=== PATIENT | female | born 1935 | race Caucasian/White ===

== ENCOUNTER 2016-02-17 09:55 | Emergency (ER) | payer MEDICARE, OTHER ==
[~2016-02-17] VITALS: Ht 157.4 cm; Wt 81.6 kg
[2016-02-17] MEDS ORDERED: DIAZEPAM5 MG PO (10:14)
[2016-02-17] MEDS ORDERED: LEVOTHYROXINE0.05 M1 PO (10:14)
[2016-02-17] MEDS ORDERED: GOOD NEIGHBOR150 MG PO (10:15)
[2016-02-17] MEDS ORDERED: BUPROPION75 MG PO (10:15)
[2016-02-17] MEDS ORDERED: LOSARTAN POTASS1 TA5 PO (10:15)
[2016-02-17] MEDS ORDERED: LANTUS SOLOS100 U/M1 SC (10:16)
== END 2016-02-17 13:17 | disposition home or self-care (01) ==
LOC: ED 09:55
DX: M25.561 Pain in right knee (principal); M25.562 Pain in left knee; Z79.4 Long term (current) use of insulin; Z90.49 Acquired absence of other specified parts of digestive tract; Z90.710 Acquired absence of both cervix and uterus; Z88.6 Allergy status to analgesic agent

== ENCOUNTER 2016-06-08 15:23 | Emergency (ER) | payer MEDICARE, OTHER ==
[~2016-06-08] VITALS: Wt 86.2 kg
[~2016-06-08 15:23] MED LIST: BUPROPION75 MG PO; DIAZEPAM5 MG PO; GOOD NEIGHBOR150 MG PO; LANTUS SOLOS100 U/M1 SC; LEVOTHYROXINE0.05 M1 PO; LOSARTAN POTASS1 TA5 PO
[2016-06-08 16:08] LABS: BASO % 0.5 % (0.0-1.0); EOS # 0.3 10*3/uL (0.0-0.4); EOS % 3.9 % (1.0-4.0); HEMATOCRIT 37.4 % (37.0-47.0); HEMOGLOBIN 11.6 g/dl (12.0-16.0); LYMPH # 2.1 10*3/uL (1.3-4.4); LYMPH % 26.4 % (27.0-41.0); MEAN CELL VOLUME 89.7 fl (81.0-99.0); MEAN CORPUSCULAR HGB 27.8 pg (27.0-31.0); MEAN PLATELET VOLUME 9.3 fl (9.6-12.3); MONO # 0.7 10*3/uL (0.1-1.0); MONO % 8.5 % (3.0-9.0); NEUT # 4.8 10*3/uL (2.3-7.9); NEUT % 60.2 % (47.0-73.0); PLATELET COUNT AUTOMATED 279 10*3/uL (130-400); RED BLOOD COUNT 4.17 10*6/uL (4.10-5.10); RED CELL DISTRI WIDTH 14.6 % (0-14.5)
[2016-06-08 16:17] LABS: PROTHROMBIN TIME 10.8 SECONDS (9.0-12.4)
[2016-06-08 16:26] LABS: ALBUMIN 2.7 gm/dl (3.1-4.5); ALKALINE PHOSPHATASE 92 U/L (45-117); BILIRUBIN, TOTAL 0.2 mg/dl (0.2-1.0); BUN 17 mg/dl (7-24); C-REACTIVE PROTEIN 0.99 MG/DL (0-0.3); CARBON DIOXIDE 31 mmol/L (21-32); CHLORIDE 107 mmol/L (98-107); EST GLOM FILT AFRICAN AMERICAN > 60 ml/min; GLUCOSE 214 mg/dL (65-99); POTASSIUM 4.7 mmol/L (3.5-5.1); SGOT/AST 17 IU/L (3-35); SGPT/ALT 22 U/L (12-78); SODIUM 140 mmol/L (136-145); TOTAL PROTEIN 7.2 gm/dL (6.4-8.2)
[2016-06-08 16:29] LABS: TROPONIN I < 0.015 ng/ml (<0.045)
== END 2016-06-08 18:42 | disposition short-term general hospital (02) ==
LOC: ED 15:23
PROVIDERS: Student in an Organized Health Care Education/Training Program
DX: H02.402 Unspecified ptosis of left eyelid (principal); R27.0 Ataxia, unspecified; Z96.652 Presence of left artificial knee joint; Z90.49 Acquired absence of other specified parts of digestive tract; Z90.710 Acquired absence of both cervix and uterus; Z88.6 Allergy status to analgesic agent; Z79.899 Other long term (current) drug therapy; Z79.4 Long term (current) use of insulin

== ENCOUNTER 2016-07-07 16:25 | Emergency (ER) | payer MEDICARE, OTHER ==
[~2016-07-07] VITALS: Wt 81.6 kg
[2016-07-07 17:16] LABS: BASO % 0.4 % (0.0-1.0); EOS # 0.5 10*3/uL (0.0-0.4); EOS % 4.9 % (1.0-4.0); HEMOGLOBIN 11.7 g/dl (12.0-16.0); IG # 0.1 10*3/uL (0.0-0.1); LYMPH # 2.2 10*3/uL (1.3-4.4); LYMPH % 21.3 % (27.0-41.0); MEAN CELL VOLUME 88.4 fl (81.0-99.0); MEAN CORPUSCULAR HGB 27.2 pg (27.0-31.0); MEAN CORPUSCULAR HGB CONC 30.8 g/dl (33.0-37.0); MEAN PLATELET VOLUME 9.3 fl (9.6-12.3); MONO # 1.1 10*3/uL (0.1-1.0); MONO % 10.6 % (3.0-9.0); NEUT # 6.5 10*3/uL (2.3-7.9); PLATELET COUNT AUTOMATED 313 10*3/uL (130-400); RED CELL DISTRI WIDTH 14.1 % (0-14.5); WHITE BLOOD COUNT 10.4 10*3/uL (4.8-10.8)
[2016-07-07 17:25] LABS: INTERNATIONAL NORM RATIO 1.1 (2.0-3.5); PROTHROMBIN TIME 11.9 SECONDS (9.0-12.4)
[2016-07-07 17:28] LABS: BILIRUBIN NEGATIVE (NEGATIVE); BLOOD NEGATIVE (NEGATIVE); CLARITY CLEAR (CLEAR); COLOR YELLOW (YELLOW); GLUCOSE NEGATIVE (NEGATIVE); KETONE NEGATIVE (NEGATIVE); LEUKO ESTERASE NEGATIVE (NEGATIVE); NITRITE NEGATIVE (NEGATIVE); PH 5.5 (5.0-9.0); PROTEIN NEGATIVE (NEGATIVE); SPECIFIC GRAVITY 1.025 (1.005-1.030); UROBILINOGEN 0.2 E.U./dl (0.2-1.0)
[2016-07-07 17:32] LABS: ALBUMIN 2.7 gm/dl (3.1-4.5); ALKALINE PHOSPHATASE 106 U/L (45-117); BILIRUBIN, TOTAL 0.3 mg/dl (0.2-1.0); BUN 14 mg/dl (7-24); C-REACTIVE PROTEIN 4.63 MG/DL (0-0.3); CARBON DIOXIDE 28 mmol/L (21-32); CHLORIDE 108 mmol/L (98-107); CPK 85 U/L (26-192); EST GLOM FILT AFRICAN AMERICAN > 60 ml/min; GLUCOSE 169 mg/dL (65-99); MAGNESIUM 1.9 mg/dL (1.5-2.1); SGOT/AST 16 IU/L (3-35); SGPT/ALT 20 U/L (12-78); SODIUM 141 mmol/L (136-145); TOTAL PROTEIN 7.7 gm/dL (6.4-8.2)
[2016-07-07 17:34] LABS: CKMB 0.6 ng/ml (0.5-3.6)
[2016-07-07 17:34] LABS: BACTERIA TRACE; URINE REFLEX COMMENT YES (NO)
[2016-07-07 17:35] LABS: TROPONIN I < 0.015 ng/ml (<0.045)
== END 2016-07-07 18:42 | disposition home or self-care (01) ==
LOC: ED 16:25
PROVIDERS: Emergency Medicine
DX: R30.0 Dysuria (principal); R53.1 Weakness; R42 Dizziness and giddiness; R31.9 Hematuria, unspecified; Z88.6 Allergy status to analgesic agent

== ENCOUNTER 2016-07-28 16:17 | Inpatient (IN) | payer MEDICARE, OTHER ==
[~2016-07-28] VITALS: Ht 157.4 cm; Wt 84.8 kg
--- NOTE | ~2016-07-28 | CON ---
[place], [place] REPORT OF CONSULTATION [id number] UN[facility] #: [id number] ROOM: 411 DOCTOR: RAYMUNDO CEE ED.D (STEPHEN) BIRTHDATE: [birth year] DOS: 07/30/2016 HISTORY OF PRESENT ILLNESS: The patient is an 81-year-old female referred by for competency evaluation. At the present time, this patient is on the 4th floor at [facility]. This patient states that she is and has 3 children; however 1 is . 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 She does follow with Kathie Mcdaniel, local nurse practitioner for her medical care coverage. Her medications include bupropion, vitamin D, Valium at bedtime, Neurontin, insulin, losartan, Mobic, Pravachol, Zantac and Synthroid. Her medical history is pertinent for diabetes mellitus type 2, diverticulosis, chronic depression, hypertension, and chronic anxiety. This patient denies any substance abuse issues of any significance. The patient was awake, alert and oriented in all three spheres. She denies any auditory or visual hallucinations or delusional thoughts. She does believe that her is possibly having an affair with a woman who is living with the patient and her . It is difficult to determine whether or not this is accurate or not, but she has a long history of thoughts that her has been cheating on her. This patient denies any suicidal ideation or plan. She did follow in my office many years ago and her other complaints were quite similar at that time. In my opinion, this patient is clearly competent to make informed healthcare decisions. There had been some discussion about this patient going to the [facility]; however, the patient states she wants to go home when she is discharged from the hospital. DIAGNOSIS: Generalized anxiety disorder. RECOMMENDATIONS: The patient should follow up for anxiety through nurse Darin practitioner, per the patient's choice. Thank you very much for this consult. RAYMUNDO CEE ED.D CM:CONSTR:REPORT OF CONSULTATION 1442 07/31/16 0008 interface
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
[2016-07-28 16:50] VITALS: BP 135/51
[2016-07-28 17:56] LABS: BASO # 0.1 10*3/uL (0.0-0.1); BASO % 0.5 % (0.0-1.0); EOS # 0.4 10*3/uL (0.0-0.4); EOS % 3.6 % (1.0-4.0); HEMATOCRIT 34.6 % (37.0-47.0); HEMOGLOBIN 10.9 g/dl (12.0-16.0); IG # 0.1 10*3/uL (0.0-0.1); MEAN CELL VOLUME 88.3 fl (81.0-99.0); MEAN CORPUSCULAR HGB 27.8 pg (27.0-31.0); MEAN CORPUSCULAR HGB CONC 31.5 g/dl (33.0-37.0); MEAN PLATELET VOLUME 9.1 fl (9.6-12.3); MONO # 0.8 10*3/uL (0.1-1.0); MONO % 8.1 % (3.0-9.0); NEUT # 6.8 10*3/uL (2.3-7.9); NEUT % 67.2 % (47.0-73.0); PLATELET COUNT AUTOMATED 302 10*3/uL (130-400); RED BLOOD COUNT 3.92 10*6/uL (4.10-5.10); RED CELL DISTRI WIDTH 14.8 % (0-14.5); WHITE BLOOD COUNT 10.1 10*3/uL (4.8-10.8)
[2016-07-28 18:13] LABS: ALBUMIN 2.5 gm/dl (3.1-4.5); ALKALINE PHOSPHATASE 79 U/L (45-117); BILIRUBIN, TOTAL 0.2 mg/dl (0.2-1.0); BUN 19 mg/dl (7-24); C-REACTIVE PROTEIN 0.76 MG/DL (0-0.3); CARBON DIOXIDE 28 mmol/L (21-32); CHLORIDE 105 mmol/L (98-107); EST GLOM FILT AFRICAN AMERICAN > 60 ml/min; GLUCOSE 279 mg/dL (65-99); MAGNESIUM 2.3 mg/dL (1.5-2.1); POTASSIUM 4.4 mmol/L (3.5-5.1); SGOT/AST 25 IU/L (3-35); SGPT/ALT 37 U/L (12-78); SODIUM 141 mmol/L (136-145); TOTAL PROTEIN 6.8 gm/dL (6.4-8.2)
[2016-07-28 19:50] VITALS: BP 115/58
[2016-07-28 22:19] VITALS: BP 143/73
[2016-07-29 01:45] LABS: CKMB 0.6 ng/ml (0.5-3.6)
[2016-07-29 06:53] LABS: BASO # 0.1 10*3/uL (0.0-0.1); BASO % 0.5 % (0.0-1.0); EOS # 0.5 10*3/uL (0.0-0.4); EOS % 5.5 % (1.0-4.0); HEMATOCRIT 34.5 % (37.0-47.0); HEMOGLOBIN 10.6 g/dl (12.0-16.0); IG # 0.1 10*3/uL (0.0-0.1); LYMPH # 3.3 10*3/uL (1.3-4.4); LYMPH % 33.3 % (27.0-41.0); MEAN CELL VOLUME 87.6 fl (81.0-99.0); MEAN CORPUSCULAR HGB 26.9 pg (27.0-31.0); MEAN CORPUSCULAR HGB CONC 30.7 g/dl (33.0-37.0); MEAN PLATELET VOLUME 9.3 fl (9.6-12.3); MONO % 10.5 % (3.0-9.0); NEUT # 4.9 10*3/uL (2.3-7.9); NEUT % 49.7 % (47.0-73.0); PLATELET COUNT AUTOMATED 311 10*3/uL (130-400); RED BLOOD COUNT 3.94 10*6/uL (4.10-5.10); RED CELL DISTRI WIDTH 14.7 % (0-14.5); WHITE BLOOD COUNT 9.9 10*3/uL (4.8-10.8)
[2016-07-29 06:58] LABS: CKMB 0.7 ng/ml (0.5-3.6)
[2016-07-29 07:01] LABS: BILIRUBIN NEGATIVE (NEGATIVE); BLOOD NEGATIVE (NEGATIVE); CLARITY SL CLOUDY (CLEAR); COLOR YELLOW (YELLOW); GLUCOSE 1+ (NEGATIVE); KETONE NEGATIVE (NEGATIVE); LEUKO ESTERASE 2+ (NEGATIVE); NITRITE NEGATIVE (NEGATIVE); PROTEIN NEGATIVE (NEGATIVE); SPECIFIC GRAVITY 1.025 (1.005-1.030); UROBILINOGEN 0.2 E.U./dl (0.2-1.0)
[2016-07-29 07:02] LABS: HEMOGLOBIN A1c 8.5 % (4.8-5.6)
[2016-07-29 07:08] LABS: BACTERIA TRACE; EPITHELIAL CELLS 0-2; URINE REFLEX COMMENT YES (NO)
[2016-07-29 07:16] LABS: BUN 15 mg/dl (7-24); CARBON DIOXIDE 27 mmol/L (21-32); CHLORIDE 108 mmol/L (98-107); CHOLESTEROL 190 mg/dL (<200); EST GLOM FILT AFRICAN AMERICAN > 60 ml/min; FREE T4 0.96 ng/dl (0.76-1.46); GLUCOSE 125 mg/dL (65-99); HDL CHOLESTEROL 50 mg/dl (40-60); LDL CHOLESTEROL 92 mg/dL (9-159); MAGNESIUM 2.3 mg/dL (1.5-2.1); PHOSPHOROUS 3.7 mg/dL (2.5-4.9); POTASSIUM 3.9 mmol/L (3.5-5.1); SODIUM 145 mmol/L (136-145); TRIGLYCERIDES 241 mg/dl (<150); VLDL CHOLESTEROL 48 mg/dL (6-40)
[2016-07-29 07:25] LABS: VITAMIN D, 25-HYDROXY 27.5 ng/mL (30-100)
[2016-07-29 07:26] LABS: FOLIC ACID > 24.00 ng/mL (>5.38)
[2016-07-29 08:00] VITALS: BP 153/51
[2016-07-29] MEDS ORDERED: LANTUS SOLOS100 U/M1 SC (09:50)
[2016-07-29] MEDS ORDERED: VALIUM5 MG PO (09:51)
[2016-07-29] MEDS ORDERED: MOBIC15 MG PO (09:51)
[2016-07-29] MEDS ORDERED: LEVOTHYROXINE0.05 MG PO (09:52)
[2016-07-29] MEDS ORDERED: LOSARTAN POTASS1 TA5 PO (09:52)
[2016-07-29] MEDS ORDERED: NEURONTIN100 MG PO (09:53)
[2016-07-29] MEDS ORDERED: PRAVACHOL20 MG PO (09:53)
[2016-07-29] MEDS ORDERED: OMEPRAZOLE10 MG PO (09:54)
[2016-07-29] MEDS ORDERED: ZANTAC 150150 MG PO (09:56)
[2016-07-29] MEDS ORDERED: BUPROPION75 MG PO (09:56)
[2016-07-29] MEDS ORDERED: B COMPLEX1 EACH PO (09:57)
[2016-07-29] MEDS ORDERED: VITAMIN D1000 IU PO (09:58)
[2016-07-29] MEDS ORDERED: MULTI-VITAMIN1 EACH PO (09:58)
[2016-07-29 12:00] VITALS: BP 124/48
[2016-07-29 12:20] LABS: CKMB 0.5 ng/ml (0.5-3.6)
[2016-07-29 16:00] VITALS: BP 143/51
[2016-07-30] VITALS: BP 150/55
[2016-07-30 07:20] LABS: BASO # 0.1 10*3/uL (0.0-0.1); BASO % 0.6 % (0.0-1.0); EOS # 0.5 10*3/uL (0.0-0.4); EOS % 6.2 % (1.0-4.0); HEMATOCRIT 35.2 % (37.0-47.0); HEMOGLOBIN 10.8 g/dl (12.0-16.0); LYMPH # 2.9 10*3/uL (1.3-4.4); LYMPH % 34.8 % (27.0-41.0); MEAN CELL VOLUME 87.8 fl (81.0-99.0); MEAN CORPUSCULAR HGB 26.9 pg (27.0-31.0); MEAN CORPUSCULAR HGB CONC 30.7 g/dl (33.0-37.0); MEAN PLATELET VOLUME 9.3 fl (9.6-12.3); MONO % 12.1 % (3.0-9.0); NEUT # 3.8 10*3/uL (2.3-7.9); NEUT % 45.8 % (47.0-73.0); PLATELET COUNT AUTOMATED 308 10*3/uL (130-400); RED BLOOD COUNT 4.01 10*6/uL (4.10-5.10); RED CELL DISTRI WIDTH 14.6 % (0-14.5); WHITE BLOOD COUNT 8.4 10*3/uL (4.8-10.8)
[2016-07-30 07:38] LABS: BUN 10 mg/dl (7-24); CARBON DIOXIDE 27 mmol/L (21-32); CHLORIDE 110 mmol/L (98-107); EST GLOM FILT AFRICAN AMERICAN > 60 ml/min; GLUCOSE 85 mg/dL (65-99); POTASSIUM 3.9 mmol/L (3.5-5.1); SODIUM 147 mmol/L (136-145)
[2016-07-30 08:00] VITALS: BP 148/63
[2016-07-30] MEDS ORDERED: LOSARTAN POTASS50 M1 PO (15:08)
[2016-07-30] MEDS ORDERED: HUMALOG100 U/ML SC (15:08)
[2016-07-30] MEDS ORDERED: RISPERIDONE0.5 MG PO (15:08)
[2016-07-30 16:00] VITALS: BP 156/55
[2016-07-30] MEDS ORDERED: HYDR12.5C PO (19:45)
[2016-07-30] MEDS ORDERED: VALIUM5 MG PO (19:46)
[2016-07-30] MEDS ORDERED: PEPCID20 MG PO (19:51)
[2016-07-30] MEDS ORDERED: Lovenox40 MG/0.4 SC (19:53)
[2016-07-30] MEDS ORDERED: RESTORIL15 MG PO (19:54)
== END 2016-07-30 19:05 | disposition home health service (06) | DRG 391 ==
LOC: ED 16:17 → 4E 17:25 → EDHOLD 17:25 → 4E 18:08
PROVIDERS: Emergency Medicine; Internal Medicine; Student in an Organized Health Care Education/Training Program
DX: K57.90 Diverticulosis of intestine, part unspecified, without perforation or abscess without bleeding (principal); G93.41 Metabolic encephalopathy; E43 Unspecified severe protein-calorie malnutrition; F33.3 Major depressive disorder, recurrent, severe with psychotic symptoms; E11.65 Type 2 diabetes mellitus with hyperglycemia; D64.9 Anemia, unspecified; E83.41 Hypermagnesemia; E78.5 Hyperlipidemia, unspecified; I10 Essential (primary) hypertension; Z96.652 Presence of left artificial knee joint; K21.9 Gastro-esophageal reflux disease without esophagitis; E66.9 Obesity, unspecified; F41.1 Generalized anxiety disorder; F60.0 Paranoid personality disorder; Z90.49 Acquired absence of other specified parts of digestive tract; Z90.710 Acquired absence of both cervix and uterus; Z82.49 Family history of ischemic heart disease and other diseases of the circulatory system; Z80.41 Family history of malignant neoplasm of ovary; Z88.6 Allergy status to analgesic agent; Z79.4 Long term (current) use of insulin; Z79.1 Long term (current) use of non-steroidal anti-inflammatories (NSAID); Z79.899 Other long term (current) drug therapy; Z68.34 Body mass index [BMI] 34.0-34.9, adult

== ENCOUNTER 2016-07-30 16:26 | Inpatient (IN) | payer MEDICARE, OTHER ==
[~2016-07-30] VITALS: Ht 157.4 cm; Wt 84.4 kg
--- NOTE | ~2016-07-30 | PR ---
[place], [place] PROGRESS NOTE NAME[id number] UNIT #: [id number] ROOM: 309 DOCTOR: SHELLIE MORA BIRTHDATE: [birth year] DOS: 08/01/2016 CHIEF COMPLAINT: "I do not want any breakfast." SUMMARY OF THE VISIT: She is resting in bed. She is sleeping. She says that she has not slept for a few days and she feels like she needs to catch up now. She awakens easily, oriented to herself, questionable to place and time at this time. She did say ask me where her breakfast was so I did tell her that we can get that for her later if she needs it. She was evaluated yesterday by Dr. Wade for competency he did find her to be competent, he will reevaluate her next week, just to make sure that this delirium that she was originally admitted to the medical floor has passed. PLAN: Increase her Exelon patch and her Namenda today to maximize both of those therapies. We will continue to try to engage her in individual and delaney milieu and discharge her to the least restrictive environment when she is psychiatrically stable. Shellie Mora NP CM:NAZARIO [phone] SHELLIE MORA 08/01/16 1209 interface
--- NOTE | ~2016-07-30 | PR ---
[place], [place] PROGRESS NOTE NAME: KAILEY BERNARDO UNIT #: [id number] ROOM: 309 DOCTOR: WILMA TAYLOR MD BIRTHDATE: [birth year] DOS: 08/03/2016 CHIEF COMPLAINT: "My was supposed to pick me up today; I am surprised he is not here." SUMMARY OF THE VISIT: The patient was interviewed as she sat in the dining area, eating her breakfast. She was convinced that her was supposed to be here early this morning to pick her up and was quite frustrated that he was not. She seemed rather confused and disjointed in her thinking, talking about her little dog coming to visit her and seeing people in the hallway that were not there. She continues to be confused as well as somewhat psychotic in her thinking. She is tolerating her current medication regimen well. MENTAL STATUS: She is alert and oriented to self, place, but not time. Mood still seems to be somewhat labile and she does seem to be experiencing ongoing delusions and psychotic symptoms. She processes conversation slowly and tends to be repetitive and perseverative in her thinking. Short term memory is exceedingly poor. PLAN: I will go ahead and maximize out her Exelon patch from 9.5 to 13.3 mg daily and plan to do similar maximization with her Namenda at a later time. I will increase her Risperdal from 0.5 mg twice daily to 0.5 mg in the morning and 1 mg at bedtime to decrease her psychotic thought process, continue to engage her in individual and delaney milieu activity. I am awaiting a consult from Dr. Jameson Wade, psychologist regarding competency to determine then the appropriate placement for the patient. We will discharge then when psychiatrically stable. WILMA TAYLOR MD CM:PNTRANS [phone] WILMA TAYLOR MD 08/03/16 1717 interface
--- NOTE | ~2016-07-30 | CON ---
[place], [place] REPORT OF CONSULTATION NAME: KAILEY BERNARDO UNIT #: [id number] ROOM: 309 DOCTOR: RAYMUNDO CEE ED.D (STEHPEN) BIRTHDATE: [birth year] DOS: 08/03/2016 HISTORY OF PRESENT ILLNESS: At the present time, this patient appears to be competent to make informed healthcare decisions. I talked to her daughter in [place] yesterday and the daughter is coming up to help the patient and her move to [place] in the immediate future. The daughter will have the paperwork completed for durable power of environmental attorney for healthcare for this patient once she arrives in [place]. At the present time, in my opinion, this patient does have some delusional thought, but overall does understand the risks and benefits of treatment. She has a long history of destroying the thoughts and look at times which causes a great deal of confusion amongst anyone who does interview this patient. I have known this patient for over 20 years and she has not changed dramatically over the past 20 years. I met with her daughter, Karen, and the patient's here in the hospital after speaking with him on the phone and they were comfortable with her returning home then getting a power of environmental attorney for healthcare. According to the daughter in [place], the patient is a hoarder and has a tendency to excessively spend money. I think that she would do best if she does move in with her daughter, as is the choice of the daughter and the patient's . DIAGNOSES: Major depressive disorder with psychotic features. RECOMMENDATIONS: In my opinion, this patient is competent and her daughter will be arriving in [place] to have her complete healthcare power of environmental attorney form in the immediate future. In the meantime, this patient should go to rehabilitation care to increase her mobility and physical stability for independent living or living with her daughter. Thank you very much for this consult. RAYMUNDO CEE ED.D CM:CONSTR:REPORT OF CONSULTATION 0813 08/04/16 1003 interface WILMA TAYLOR MD
--- NOTE | ~2016-07-30 | DS ---
[place], [place] DISCHARGE SUMMARY [id number] UNIT #: [id number] ROOM: 317 DOCTOR: SHELLIE MORA BIRTHDATE: [birth year] DOS: 08/04/2016 CHIEF COMPLAINT: "I had a fantastic night." HISTORY OF PRESENT ILLNESS: She is an 81-year-old white female who was admitted to the hospital medically with diarrhea and some other medical problems. She was found to be grossly confused and delusional while she was on the unit. She was paranoid, believed that a friend that she had made on Facebook moved in with her in December and that this friend was having an intimate relationship with her . She was found to have worsening symptoms in the evening and that the confusion progressively got worse throughout the day. She was then transferred to the Behavioral Health Unit for medication stabilization and treatment. PAST MEDICAL HISTORY: Diabetes, diverticulosis, GERD, hyperlipidemia, hypertension, anemia and protein-calorie malnutrition. ALLERGIES: She is allergic to caffeine and aspirin. SUMMARY OF HOSPITAL COURSE: While the patient has been here on the Behavioral Health Unit, we have adjusted her dementia medications to maximize that. We will continue to monitor that medication at this facility when she returns. MENTAL STATUS AT DISCHARGE: She is alert, pleasant, still a little confused, especially to time, but states that she is really ready to go home. Referrals have been made to [facility] where she will go now for long-term care. Her prescriptions will be sent with her to [facility] and she is discharged in mentally stable condition. Shellie Mora NP CM:DISCHARG [phone] SHELLIE MORA 08/20/16 1408 KADI MENA MIS.LLR
--- NOTE | ~2016-07-30 | WRIGHTHP ---
[place], [place] PATIENT HISTORY AND PHYSICAL EXAM NAME: KAILEY BERNARDO [facility] #: [id number] UNIT #: [id number] ROOM: 309 DOCTOR: WILMA TAYLOR MD BIRTHDATE: [birth year] DOS: 07/31/2016 CHIEF COMPLAINT: "I need to go home. I have not seen my in over a month." HISTORY OF PRESENT ILLNESS: This is an 81-year-old white female who was initially admitted to the medical unit due to significant diarrhea and other underlying medical problems. While on the medical unit, the patient was found to be grossly confused as well as delusional. The patient is very paranoid and believes that she had a friend, who was a Facebook friend for 15 years, moved in with her in December and since that time this friend has had an ongoing sexual relationship with her . She fears that her is going to leave her for the friend and is increasingly paranoid and making threats to him and others. The patient additionally is found to sundown significantly and her level of confusion worsens as the day progresses to the point where she is oriented to self only. Because of the significant mental status changes, it was felt that an inpatient evaluation and treatment was warranted as well as possible emergency guardianship and determine if placement is the best option for her. PAST MEDICAL HISTORY: Remarkable for diabetes, diverticulosis, GERD, hyperlipidemia, hypertension, anemia, and protein-calorie malnutrition. MENTAL STATUS: The patient this morning is alert and oriented to person, place, but not time. The patient reports that she has been in the hospital for at least a month. The patient could not tell me why exactly she is here and was rather guarded and suspicious of my questioning of her. She denied hearing voices or seeing things, but does seem to be actively delusional. There is no hypomania or tom. She does process information slowly and she exhibits poor short-term memory. 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 PLAN: The patient has already been started on Remeron 15 mg at bedtime as well as Risperdal 0.5 twice daily; however, she has been noncompliant with these medications. Given the cognitive decline that she is experiencing, I will go ahead and start Exelon patch 4.6 mg daily along with Namenda 5 mg a day and plan to titrate both of these medications upward to achieve maximum benefit. We will have her engage in individual and delaney milieu activities with the ultimate plan to return to the least restrictive environment when psychiatrically stable. [place], [place] PATIENT HISTORY AND PHYSICAL EXAM NAME: KAILEY BERNARDO UNIT #: [id number] ROOM: [facility] DOCTOR: WILMA TAYLOR MD BIRTHDATE: [birth year] WILMA TAYLOR MD CM:HISPHYS:PATIENT HISTORY AND PHYSICAL EXAMINATION [id number] WILMA TAYLOR MD 07/31/16 1025 interface
--- NOTE | ~2016-07-30 | CON ---
[place], [place] REPORT OF CONSULTATION [id number] UNIT #: [id number] ROOM: 309 DOCTOR: RAYMUNDO CEE ED.D) BIRTHDATE: [birth year] DOS: 07/31/2016 HISTORY OF PRESENT ILLNESS: The patient is an 81-year-old female referred by Dr. Guadalupe for competency evaluation. At the present time, this patient is on the [facility] Unit here at [facility]. I did evaluate this patient yesterday on medical floor and she was competent at that time. She is with 3 children, 1 . 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 She does follow with Kathie Mcdaniel, nurse practitioner. HOME MEDICATIONS: Include bupropion, vitamin D, Valium, Neurontin, insulin, losartan, Mobic, Pravachol, Zantac and Synthroid. Dr. Guadalupe has also started Namenda and Exelon along with Remeron and Risperdal. PAST MEDICAL HISTORY: This patient's medical history is pertinent for diabetes mellitus type 2, diverticulosis, chronic depression, hypertension, and chronic anxiety. She denies any substance abuse issues. The patient remains awake, alert and oriented in all three spheres. She does not have any auditory or visual hallucinations but does have some delusional thoughts about her . I am uncertain whether or not these thoughts are true or not because she stated that her was having an affair with a woman who is living in their home that the patient met through Face book. Apparently, there were some accuracy to this; however, I am not certain. When I evaluated this patient yesterday, she was clearly competent and at the present time, in my opinion, she remains competent, although she does have some delusional thoughts. She is pink slipped to the unit and therefore I will wait until next week to reevaluate her to determine whether or not anything further should be done regarding competency to the court. At this time, I do not see the need to file competency papers on this patient and hopefully, her condition will improve somewhat to the weekend. I have known this patient for many years and her behavior is not really significantly different from what it was for the many years I have known her. She has always had some paranoid thoughts about her and having relationships and she and her always had a very difficult relationship. DIAGNOSIS: Major depressive disorder with psychotic features. RECOMMENDATIONS: I will reevaluate this patient next week to further determine whether or not competency paper should be filed. Thank you very much for this consult. [place], [place] REPORT OF CONSULTATION NAME: KAILEY BERNARDO UNIT #: [id number] ROOM: 309 DOCTOR: RAYMUNDO CEE ED.D) BIRTHDATE: [birth year] RAYMUNDO CEE ED.D CM:CONSTR:REPORT OF CONSULTATION 1356 08/01/16 0058 interface
--- NOTE | ~2016-07-30 | PR ---
[place], [place] PROGRESS NOTE NAME: KAILEY BERNARDO UNIT #: [id number] ROOM: 309 DOCTOR: SHELLIE MORA BIRTHDATE: [birth year] DOS: 08/02/2016 CHIEF COMPLAINT: "I am going shopping today at 10:00." SUMMARY OF THE VISIT: She was seated in the dining room where she had just finished her breakfast. Reports from staff there was a family meeting yesterday where patient was very paranoid, yelling, accusing her daughter of various different things, saying that we were poisoning her here. She continues this morning to be confused about as far as place and time, what is going to happen today, she seems to believe that she is going to be leaving today. She was redirected fairly easily, but only for short periods. Her mood and affect are appropriate. PLAN: We will increase her Namenda to 5 mg b.i.d. to help to combat her dementia and to supplement her Exelon. We will continue to try to engage her in individual and delaney milieu and we will discharge her to the least restrictive environment when she is psychiatrically stable. Shellie Mora NP CM:NAZARIO [phone] SHELLIE MORA 08/02/16 1133 interface
[~2016-07-30 16:26] MED LIST changes: +B COMPLEX1 EACH PO; +HUMALOG100 U/ML SC; +LEVOTHYROXINE0.05 MG PO; +LOSARTAN POTASS50 M1 PO; +MOBIC15 MG PO; +MULTI-VITAMIN1 EACH PO; +NEURONTIN100 MG PO; +OMEPRAZOLE10 MG PO; +PRAVACHOL20 MG PO; +RISPERIDONE0.5 MG PO; +VALIUM5 MG PO; +VITAMIN D1000 IU PO; +ZANTAC 150150 MG PO
[2016-07-30] MEDS ORDERED: HYDR12.5C PO (19:45)
[2016-07-30] MEDS ORDERED: VALIUM5 MG PO (19:46)
[2016-07-30] MEDS ORDERED: PEPCID20 MG PO (19:51)
[2016-07-30] MEDS ORDERED: Lovenox40 MG/0.4 SC (19:53)
[2016-07-30] MEDS ORDERED: RESTORIL15 MG PO (19:54)
[2016-07-30 20:10] VITALS: BP 170/110; BP 170/88
[2016-07-30 23:25] VITALS: BP 170/88
[2016-07-31 07:58] VITALS: BP 132/92
[2016-07-31 19:58] VITALS: BP 149/59
[2016-08-01 08:00] VITALS: BP 118/66
[2016-08-01 20:00] VITALS: BP 147/57
[2016-08-01 20:26] VITALS: BP 147/57
[2016-08-02 07:54] VITALS: BP 123/57
[2016-08-02 20:00] VITALS: BP 138/90
[2016-08-03 08:47] VITALS: BP 141/58
[2016-08-03 21:18] VITALS: BP 139/68
[2016-08-04 08:00] VITALS: BP 139/67
[2016-08-04] MEDS ORDERED: MIRTAZAPINE15 M2 PO (08:58)
[2016-08-04] MEDS ORDERED: RISPERIDONE1 MG PO (08:58)
[2016-08-04] MEDS ORDERED: NAMENDA-5 PO (08:58)
[2016-08-04] MEDS ORDERED: EXELON13.3 MG/21 T (08:58)
[2016-08-04] MEDS ORDERED: D-1000 185 MG-11 TAB PO (08:58)
[2016-08-04] MEDS ORDERED: RISPERIDONE0.5 MG PO (08:58)
== END 2016-08-04 19:00 | disposition other institution (70) | DRG 56 ==
LOC: 3N 16:26
PROVIDERS: Psychiatry & Neurology Psychiatry
DX: G30.9 Alzheimer's disease, unspecified (principal); E43 Unspecified severe protein-calorie malnutrition; F02.81 Dementia in other diseases classified elsewhere, unspecified severity, with behavioral disturbance; E11.9 Type 2 diabetes mellitus without complications; F33.3 Major depressive disorder, recurrent, severe with psychotic symptoms; D64.9 Anemia, unspecified; K57.90 Diverticulosis of intestine, part unspecified, without perforation or abscess without bleeding; K21.9 Gastro-esophageal reflux disease without esophagitis; E78.5 Hyperlipidemia, unspecified; I10 Essential (primary) hypertension; Z88.6 Allergy status to analgesic agent; Z91.048 Other nonmedicinal substance allergy status; F41.9 Anxiety disorder, unspecified; Z90.49 Acquired absence of other specified parts of digestive tract; Z90.710 Acquired absence of both cervix and uterus; Z96.652 Presence of left artificial knee joint; Z82.49 Family history of ischemic heart disease and other diseases of the circulatory system; Z80.9 Family history of malignant neoplasm, unspecified; Z79.4 Long term (current) use of insulin

== ENCOUNTER 2016-08-22 14:59 | Emergency (ER) | payer MEDICARE, OTHER ==
[~2016-08-22] VITALS: Ht 157.4 cm; Wt 79.4 kg
[~2016-08-22 14:59] MED LIST changes: +D-1000 185 MG-11 TAB PO; +EXELON13.3 MG/21 T; +HYDR12.5C PO; +Lovenox40 MG/0.4 SC; +MIRTAZAPINE15 M2 PO; +NAMENDA-5 PO; +PEPCID20 MG PO; +RESTORIL15 MG PO; +RISPERIDONE1 MG PO
[2016-08-22 15:41] LABS: BILIRUBIN NEGATIVE (NEGATIVE); BLOOD NEGATIVE (NEGATIVE); CLARITY SL CLOUDY (CLEAR); COLOR YELLOW (YELLOW); GLUCOSE NEGATIVE (NEGATIVE); KETONE NEGATIVE (NEGATIVE); LEUKO ESTERASE 1+ (NEGATIVE); NITRITE NEGATIVE (NEGATIVE); PH 6.5 (5.0-9.0); PROTEIN NEGATIVE (NEGATIVE); UROBILINOGEN 0.2 E.U./dl (0.2-1.0)
[2016-08-22 15:49] LABS: MUCOUS 1+; URINE REFLEX COMMENT YES (NO)
[2016-08-22] MEDS ORDERED: PYRIDIUM200 M1 PO ×2 (15:58→16:22)
[2016-08-22] MEDS ORDERED: MACROBID100 M1 PO ×2 (15:58→16:22)
== END 2016-08-22 16:11 | disposition home or self-care (01) ==
LOC: ED 14:59
PROVIDERS: Nurse Practitioner Family
DX: N39.0 Urinary tract infection, site not specified (principal); Z88.6 Allergy status to analgesic agent; Z88.8 Allergy status to other drugs, medicaments and biological substances; Z79.899 Other long term (current) drug therapy

== ENCOUNTER 2016-09-07 16:59 | Emergency (ER) | payer MEDICARE, OTHER ==
[~2016-09-07] VITALS: Ht 157.4 cm; Wt 77.1 kg
[~2016-09-07 16:59] MED LIST changes: +MACROBID100 M1 PO; +PYRIDIUM200 M1 PO
[2016-09-07 17:40] LABS: BASO # 0.1 10*3/uL (0.0-0.1); BASO % 0.4 % (0.0-1.0); EOS # 0.1 10*3/uL (0.0-0.4); EOS % 1.2 % (1.0-4.0); HEMATOCRIT 36.9 % (37.0-47.0); HEMOGLOBIN 11.2 g/dl (12.0-16.0); IG # 0.1 10*3/uL (0.0-0.1); LYMPH # 1.7 10*3/uL (1.3-4.4); LYMPH % 13.9 % (27.0-41.0); MEAN CELL VOLUME 88.3 fl (81.0-99.0); MEAN CORPUSCULAR HGB 26.8 pg (27.0-31.0); MEAN CORPUSCULAR HGB CONC 30.4 g/dl (33.0-37.0); MEAN PLATELET VOLUME 9.4 fl (9.6-12.3); MONO # 0.8 10*3/uL (0.1-1.0); MONO % 6.5 % (3.0-9.0); NEUT # 9.2 10*3/uL (2.3-7.9); NEUT % 77.5 % (47.0-73.0); PLATELET COUNT AUTOMATED 334 10*3/uL (130-400); RED BLOOD COUNT 4.18 10*6/uL (4.10-5.10); RED CELL DISTRI WIDTH 15.2 % (0-14.5); WHITE BLOOD COUNT 11.8 10*3/uL (4.8-10.8)
[2016-09-07 17:51] LABS: BUN 18 mg/dl (7-24); CARBON DIOXIDE 27 mmol/L (21-32); CHLORIDE 109 mmol/L (98-107); EST GLOM FILT AFRICAN AMERICAN > 60 ml/min; GLUCOSE 144 mg/dL (65-99); POTASSIUM 4.4 mmol/L (3.5-5.1); SODIUM 144 mmol/L (136-145)
[2016-09-07 18:00] LABS: BILIRUBIN NEGATIVE (NEGATIVE); BLOOD NEGATIVE (NEGATIVE); CLARITY SL CLOUDY (CLEAR); COLOR YELLOW (YELLOW); GLUCOSE 1+ (NEGATIVE); KETONE NEGATIVE (NEGATIVE); LEUKO ESTERASE NEGATIVE (NEGATIVE); NITRITE NEGATIVE (NEGATIVE); PH 5.5 (5.0-9.0); PROTEIN NEGATIVE (NEGATIVE); UROBILINOGEN 0.2 E.U./dl (0.2-1.0)
[2016-09-07 18:08] LABS: BACTERIA 1+; MUCOUS TRACE; RBC 0-2 rbc/hpf (0-2); URINE AMPHETAMINES < 1000 (1000ng/ml); URINE BARBITURATES < 200 (200ng/ml); URINE COCAINE < 300 (300ng/ml); URINE REFLEX COMMENT NO (NO)
== END 2016-09-07 20:32 | disposition home health service (06) ==
LOC: ED 16:59
PROVIDERS: Emergency Medicine
DX: F23 Brief psychotic disorder (principal); F41.9 Anxiety disorder, unspecified; I10 Essential (primary) hypertension; E78.5 Hyperlipidemia, unspecified; E11.9 Type 2 diabetes mellitus without complications; K21.9 Gastro-esophageal reflux disease without esophagitis; Z79.4 Long term (current) use of insulin; Z88.6 Allergy status to analgesic agent; Z88.8 Allergy status to other drugs, medicaments and biological substances; Z79.899 Other long term (current) drug therapy

== ENCOUNTER 2016-09-07 20:33 | Inpatient (IN) | payer MEDICARE, OTHER ==
[~2016-09-07] VITALS: Ht 157.4 cm; Wt 83.9 kg
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
[2016-09-07 21:00] VITALS: BP 186/64
[2016-09-08 06:53] LABS: BASO # 0.1 10*3/uL (0.0-0.1); BASO % 0.6 % (0.0-1.0); EOS # 0.4 10*3/uL (0.0-0.4); EOS % 5.1 % (1.0-4.0); HEMATOCRIT 32.1 % (37.0-47.0); HEMOGLOBIN 9.9 g/dl (12.0-16.0); LYMPH # 2.8 10*3/uL (1.3-4.4); LYMPH % 32.8 % (27.0-41.0); MEAN CELL VOLUME 88.9 fl (81.0-99.0); MEAN CORPUSCULAR HGB 27.4 pg (27.0-31.0); MEAN CORPUSCULAR HGB CONC 30.8 g/dl (33.0-37.0); MEAN PLATELET VOLUME 9.4 fl (9.6-12.3); MONO # 0.8 10*3/uL (0.1-1.0); MONO % 8.9 % (3.0-9.0); NEUT # 4.4 10*3/uL (2.3-7.9); NEUT % 52.2 % (47.0-73.0); PLATELET COUNT AUTOMATED 296 10*3/uL (130-400); RED BLOOD COUNT 3.61 10*6/uL (4.10-5.10); RED CELL DISTRI WIDTH 15.1 % (0-14.5); WHITE BLOOD COUNT 8.4 10*3/uL (4.8-10.8)
[2016-09-08 07:15] LABS: ALBUMIN 2.4 gm/dl (3.1-4.5); BILIRUBIN, TOTAL 0.3 mg/dl (0.2-1.0); BUN 15 mg/dl (7-24); CARBON DIOXIDE 29 mmol/L (21-32); CHLORIDE 111 mmol/L (98-107); EST GLOM FILT AFRICAN AMERICAN > 60 ml/min; GLUCOSE 74 mg/dL (65-99); POTASSIUM 3.7 mmol/L (3.5-5.1); SGOT/AST 16 IU/L (3-35); SGPT/ALT 20 U/L (12-78); SODIUM 146 mmol/L (136-145); TOTAL PROTEIN 6.6 gm/dL (6.4-8.2)
[2016-09-08 07:23] LABS: ALKALINE PHOSPHATASE 79 U/L (45-117)
[2016-09-08 08:05] VITALS: BP 155/59
[2016-09-08 09:02] LABS: VITAMIN D, 25-HYDROXY 33.8 ng/mL (30-100)
[2016-09-08 09:18] LABS: FOLIC ACID > 24.00 ng/mL (>5.38)
[2016-09-08 20:17] VITALS: BP 134/52
[2016-09-09 08:00] VITALS: BP 151/68
[2016-09-09 20:17] VITALS: BP 118/68
[2016-09-09] MEDS ORDERED: EXELON4.6 MG/24 TD (21:33)
[2016-09-09] MEDS ORDERED: CYMBALTA30 MG PO (21:34)
[2016-09-09] MEDS ORDERED: INVEGA3 MG PO (21:35)
[2016-09-09] MEDS ORDERED: ATIVAN1 MG PO ×2 (21:37→22:49)
[2016-09-09] MEDS ORDERED: ATIVAN2 MG/ML IM (21:38)
[2016-09-09] MEDS ORDERED: GEODON20 M1 IM (21:39)
== END 2016-09-09 21:00 | disposition short-term general hospital (02) | DRG 885 ==
LOC: 3N 20:33
PROVIDERS: Psychiatry & Neurology Psychiatry
DX: F23 Brief psychotic disorder (principal); E43 Unspecified severe protein-calorie malnutrition; R65.10 Systemic inflammatory response syndrome (SIRS) of non-infectious origin without acute organ dysfunction; D64.9 Anemia, unspecified; E11.65 Type 2 diabetes mellitus with hyperglycemia; E11.40 Type 2 diabetes mellitus with diabetic neuropathy, unspecified; F33.2 Major depressive disorder, recurrent severe without psychotic features; Z68.30 Body mass index [BMI] 30.0-30.9, adult; K57.90 Diverticulosis of intestine, part unspecified, without perforation or abscess without bleeding; E66.9 Obesity, unspecified; I10 Essential (primary) hypertension; F41.1 Generalized anxiety disorder; E78.5 Hyperlipidemia, unspecified; K21.0 Gastro-esophageal reflux disease with esophagitis; Z96.652 Presence of left artificial knee joint; E55.9 Vitamin D deficiency, unspecified; Z91.81 History of falling; Z87.440 Personal history of urinary (tract) infections; Z90.49 Acquired absence of other specified parts of digestive tract; Z90.710 Acquired absence of both cervix and uterus; Z82.49 Family history of ischemic heart disease and other diseases of the circulatory system; Z80.41 Family history of malignant neoplasm of ovary; Z88.6 Allergy status to analgesic agent; Z91.018 Allergy to other foods

== ENCOUNTER 2016-09-09 21:28 | Inpatient (IN) | payer MEDICARE, OTHER ==
[~2016-09-09] VITALS: Ht 162.6 cm; Wt 84.6 kg
[2016-09-09 21:30] VITALS: BP 152/62
[2016-09-09] MEDS ORDERED: EXELON4.6 MG/24 TD (21:33)
[2016-09-09] MEDS ORDERED: CYMBALTA30 MG PO (21:34)
[2016-09-09] MEDS ORDERED: INVEGA3 MG PO (21:35)
[2016-09-09] MEDS ORDERED: ATIVAN1 MG PO ×2 (21:37→22:49)
[2016-09-09] MEDS ORDERED: ATIVAN2 MG/ML IM (21:38)
[2016-09-09] MEDS ORDERED: GEODON20 M1 IM (21:39)
[2016-09-09 22:09] LABS: BASO % 0.4 % (0.0-1.0); EOS # 0.6 10*3/uL (0.0-0.4); EOS % 6.5 % (1.0-4.0); HEMATOCRIT 36.2 % (37.0-47.0); HEMOGLOBIN 10.8 g/dl (12.0-16.0); LYMPH # 2.5 10*3/uL (1.3-4.4); LYMPH % 27.4 % (27.0-41.0); MEAN CORPUSCULAR HGB 26.9 pg (27.0-31.0); MEAN CORPUSCULAR HGB CONC 29.8 g/dl (33.0-37.0); MEAN PLATELET VOLUME 9.3 fl (9.6-12.3); MONO # 0.8 10*3/uL (0.1-1.0); MONO % 8.6 % (3.0-9.0); NEUT # 5.2 10*3/uL (2.3-7.9); NEUT % 56.7 % (47.0-73.0); PLATELET COUNT AUTOMATED 340 10*3/uL (130-400); RED BLOOD COUNT 4.02 10*6/uL (4.10-5.10); RED CELL DISTRI WIDTH 15.5 % (0-14.5); WHITE BLOOD COUNT 9.3 10*3/uL (4.8-10.8)
[2016-09-09 22:19] LABS: PROTHROMBIN TIME 10.7 SECONDS (9.0-12.4)
[2016-09-09 22:25] LABS: ALBUMIN 2.7 gm/dl (3.1-4.5); ALKALINE PHOSPHATASE 109 U/L (45-117); BILIRUBIN, TOTAL 0.2 mg/dl (0.2-1.0); BUN 18 mg/dl (7-24); CARBON DIOXIDE 29 mmol/L (21-32); CHLORIDE 107 mmol/L (98-107); EST GLOM FILT AFRICAN AMERICAN > 60 ml/min; GLUCOSE 90 mg/dL (65-99); MAGNESIUM 2.5 mg/dL (1.5-2.1); PHOSPHOROUS 4.1 mg/dL (2.5-4.9); POTASSIUM 4.3 mmol/L (3.5-5.1); SGOT/AST 18 IU/L (3-35); SGPT/ALT 24 U/L (12-78); SODIUM 143 mmol/L (136-145); TOTAL PROTEIN 7.9 gm/dL (6.4-8.2); TROPONIN I < 0.015 ng/ml (<0.045)
[2016-09-09 22:26] LABS: FREE T4 0.97 ng/dl (0.76-1.46)
[2016-09-09 22:35] LABS: ABG BASE EXCESS 0.4 mmol/L (-2.0-2.0); ARTERIAL BLOOD GAS PH 7.263 (7.35-7.45)
[2016-09-09 22:46] LABS: ABG TEMPERATURE 97.2 F (98.0-99.0); ARTERIAL BLOOD GAS PO2 31.4 mmHg (80-90)
[2016-09-09 22:55] LABS: BILIRUBIN NEGATIVE (NEGATIVE); BLOOD TRACE-INTACT (NEGATIVE); CLARITY CLEAR (CLEAR); COLOR YELLOW (YELLOW); GLUCOSE 1+ (NEGATIVE); KETONE NEGATIVE (NEGATIVE); LEUKO ESTERASE 3+ (NEGATIVE); NITRITE NEGATIVE (NEGATIVE); PH 5.5 (5.0-9.0); PROTEIN NEGATIVE (NEGATIVE); SPECIFIC GRAVITY <= 1.005 (1.005-1.030); UROBILINOGEN 0.2 E.U./dl (0.2-1.0)
[2016-09-09 23:04] LABS: BACTERIA 1+; URINE REFLEX COMMENT YES (NO); WBC 31-40 wbc/hpf (0-5)
[2016-09-09 23:12] LABS: ABG BASE EXCESS 0.8 mmol/L (-2.0-2.0); ABG CO2 CONTENT 27.5 mmol/L (23-27); ABG HCO3 26.1 mmol/l (22-26); ABG TEMPERATURE 97.5 F (98.0-99.0); ARTERIAL BLOOD GAS PH 7.368 (7.35-7.45)
[2016-09-10] VITALS: BP 142/80
[2016-09-10 04:01] VITALS: BP 162/72
[2016-09-10 07:50] VITALS: BP 160/72
== END 2016-09-10 11:43 | disposition home health service (06) | DRG 689 ==
LOC: ICCU 21:28
PROVIDERS: Family Medicine; Internal Medicine Hospice and Palliative Medicine
DX: N39.0 Urinary tract infection, site not specified (principal); G93.41 Metabolic encephalopathy; E43 Unspecified severe protein-calorie malnutrition; F23 Brief psychotic disorder; F41.9 Anxiety disorder, unspecified; F32.9 Major depressive disorder, single episode, unspecified; E66.9 Obesity, unspecified; K21.9 Gastro-esophageal reflux disease without esophagitis; E78.5 Hyperlipidemia, unspecified; I10 Essential (primary) hypertension; E11.40 Type 2 diabetes mellitus with diabetic neuropathy, unspecified; Z96.652 Presence of left artificial knee joint; R31.9 Hematuria, unspecified; D64.9 Anemia, unspecified; E11.65 Type 2 diabetes mellitus with hyperglycemia; E83.41 Hypermagnesemia; K57.90 Diverticulosis of intestine, part unspecified, without perforation or abscess without bleeding; Z80.41 Family history of malignant neoplasm of ovary; Z82.49 Family history of ischemic heart disease and other diseases of the circulatory system; Z90.49 Acquired absence of other specified parts of digestive tract; Z90.710 Acquired absence of both cervix and uterus; Z88.6 Allergy status to analgesic agent; Z68.30 Body mass index [BMI] 30.0-30.9, adult; Z91.018 Allergy to other foods; Z79.4 Long term (current) use of insulin; Z79.899 Other long term (current) drug therapy

== ENCOUNTER 2016-09-10 11:47 | Inpatient (IN) | payer MEDICARE, OTHER ==
[~2016-09-10] VITALS: Ht 157.4 cm; Wt 74.8 kg
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
--- NOTE | ~2016-09-10 | CON ---
[place], [place] REPORT OF CONSULTATION NAME: [facility]ERNARDO [id number] UNIT #: [id number] ROOM: 312 DOCTOR: RAYMUNDO CEE ED.D) BIRTHDATE: [birth year] DOS: 09/11/2016 HISTORY OF PRESENT ILLNESS: The patient is an 81-year-old female referred by Dr. Taylor for competency evaluation. At the present time, this patient is on [facility] at [facility] She had been admitted here just recently also. This patient is and she has three children, one of whom is . 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 At the present time, she does follow with Kathie Mcdaniel NP. Her psych medications include Cymbalta and Latuda. This patient's medical history is pertinent for major depressive disorder, diabetes mellitus type 2, diverticulosis, GERD, hyperlipidemia, hypertension, neuropathy, obesity, protein calorie malnutrition and vitamin D deficiency. This patient was awake, alert and oriented in all three spheres. She knows me and has known me for many years since she was my patient nearly 20 years ago in my private practice. She does not appear to be having any delusional thoughts at this time, although the family reports she does have some delusional thoughts. I did not witness this; however, and she did not appear to be having any active hallucinations. She denies any suicidal ideation or plan. We had a telephone conversation with the patient's daughter, Katie, and also her daughter, Karen, was in the room along with the family friend at the patient's request and the social workers from the unit. In my opinion, I cannot say at this point in time that the patient is really incompetent, although she is having a great deal of difficulty at home. She did agree to go to assisted living temporarily and also her daughter, Katie, will be her durable power of deputy prosecuting attorney for healthcare. This was supposedly going to be done in July, but it never got completed, but it will be in the future according to the patient's daughter. The patient is certainly agreeable to go to assist with because she does not believe she can reside at home any longer. I did explain that I could do a full Abhishek memory evaluation, but that would take significant time and that would be done in the office, but since the patient is willing to go to assisted living and the family is all in agreement that will be the best plan at this time and durable power of deputy prosecuting attorney should be executed. DIAGNOSES: Major depressive disorder with psychotic features. RECOMMENDATIONS: In my opinion, this patient would benefit from assisted living and the family is going to pursue this at this time. Thank you very much for this consult. [place], [place] REPORT OF CONSULTATION NAME: KAILEY BERNARDO UNIT #: [id number] ROOM: 312 DOCTOR: RAYMUNDO CEE ED.D (STEPHEN) BIRTHDATE: [birth year] RAYMUNDO CEE ED.D CM:CONSTR:REPORT OF CONSULTATION 0958 09/11/16 2213 interface WILMA TAYLOR MD
--- NOTE | ~2016-09-10 | PR ---
[place], [place] PROGRESS NOTE [id number] UN[facility] #: [id number] ROOM: 312 DOCTOR: WILMA TAYLOR MD BIRTHDATE: [birth year] DOS: 09/14/2016 CHIEF COMPLAINT: "I think I am ready to go home today." SUMMARY OF THE VISIT: The patient was interviewed first as she was walking down the hallway with physical therapy helping her and then later as she sat at the breakfast table. She was bright, pleasant and conversant and reports feeling better since she has changed her antidepressant. She even rates her pain as being substantially under control. Sleep is reported as improved, as is appetite. She convincingly denies any medication side effects. MENTAL STATUS: She is alert and oriented to person, place and very approximate to time. Mood does seem to be strongly trending towards euthymia. Affect is much more appropriate. There are no symptoms of hypomania or tom. There are no overt psychotic symptoms, no paranoia, no delusions, no auditory or visual hallucinations. Memory for the most part is fairly intact. PLAN: I will maintain her current psychotropic regimen. Continue to engage in individual and delaney milieu activity. We will discuss the case with the treatment team and elementary school social worker to finalize discharge plans and discharge then to the least restrictive environment when psychiatrically stable. WILMA TAYLOR MD CM:PNTRANS [id number] WILMA TAYLOR MD 09/14/16 0905 interface
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
[~2016-09-10 11:47] MED LIST changes: +ATIVAN1 MG PO; +ATIVAN2 MG/ML IM; +CYMBALTA30 MG PO; +EXELON4.6 MG/24 TD; +GEODON20 M1 IM; +INVEGA3 MG PO
[2016-09-10 12:32] VITALS: BP 143/51
[2016-09-10 12:39] VITALS: BP 143/51
[2016-09-10 20:19] VITALS: BP 144/57
[2016-09-11 08:11] VITALS: BP 147/58
[2016-09-11 20:10] VITALS: BP 151/56
[2016-09-12 08:00] VITALS: BP 143/62
[2016-09-12 20:07] VITALS: BP 136/70
[2016-09-13 08:51] VITALS: BP 137/64
[2016-09-13 20:00] VITALS: BP 145/58
[2016-09-14 07:50] VITALS: BP 136/54
[2016-09-14 19:51] VITALS: BP 145/58
[2016-09-15 07:40] VITALS: BP 150/52
[2016-09-15 19:58] VITALS: BP 150/62
[2016-09-16 07:47] VITALS: BP 154/72
[2016-09-16] MEDS ORDERED: VITAMIN B-11 TAB PO (07:52)
[2016-09-16] MEDS ORDERED: D-1000 185 MG-11 TAB PO (07:52)
[2016-09-16] MEDS ORDERED: MEMANTINE HCL10 MG PO (07:52)
[2016-09-16] MEDS ORDERED: NAMENDA-5 PO (07:52)
[2016-09-16] MEDS ORDERED: DULOXETINE HCL60 MG PO (07:52)
[2016-09-16] MEDS ORDERED: LATU40TA PO (07:52)
[2016-09-16] MEDS ORDERED: FAMOTIDINE20 M1 PO (09:54)
[2016-09-16] MEDS ORDERED: THERA TABS1 TAB PO (09:54)
== END 2016-09-16 14:46 | disposition home or self-care (01) | DRG 885 ==
LOC: 3N 11:47
DX: F33.3 Major depressive disorder, recurrent, severe with psychotic symptoms (principal); E43 Unspecified severe protein-calorie malnutrition; E11.40 Type 2 diabetes mellitus with diabetic neuropathy, unspecified; E11.65 Type 2 diabetes mellitus with hyperglycemia; F23 Brief psychotic disorder; K57.90 Diverticulosis of intestine, part unspecified, without perforation or abscess without bleeding; K21.9 Gastro-esophageal reflux disease without esophagitis; E78.5 Hyperlipidemia, unspecified; I10 Essential (primary) hypertension; D64.9 Anemia, unspecified; E66.9 Obesity, unspecified; F41.9 Anxiety disorder, unspecified; E55.9 Vitamin D deficiency, unspecified; Z96.652 Presence of left artificial knee joint; Z90.49 Acquired absence of other specified parts of digestive tract; Z90.710 Acquired absence of both cervix and uterus; Z82.49 Family history of ischemic heart disease and other diseases of the circulatory system; Z80.41 Family history of malignant neoplasm of ovary; Z88.6 Allergy status to analgesic agent; Z88.9 Allergy status to unspecified drugs, medicaments and biological substances; Z79.4 Long term (current) use of insulin; Z68.30 Body mass index [BMI] 30.0-30.9, adult

== ENCOUNTER 2017-01-09 13:27 | Emergency (ER) | payer MEDICARE, OTHER ==
[~2017-01-09] VITALS: Ht 157.4 cm; Wt 81.6 kg
[~2017-01-09 13:27] MED LIST changes: +DULOXETINE HCL60 MG PO; +FAMOTIDINE20 M1 PO; +LATU40TA PO; +MEMANTINE HCL10 MG PO; +THERA TABS1 TAB PO; +VITAMIN B-11 TAB PO
[2017-01-09 13:50] LABS: BILIRUBIN NEGATIVE (NEGATIVE); BLOOD TRACE-INTACT (NEGATIVE); CLARITY SL CLOUDY (CLEAR); COLOR YELLOW (YELLOW); GLUCOSE NEGATIVE (NEGATIVE); KETONE NEGATIVE (NEGATIVE); LEUKO ESTERASE 2+ (NEGATIVE); NITRITE NEGATIVE (NEGATIVE); PH 5.5 (5.0-9.0); SPECIFIC GRAVITY 1.025 (1.005-1.030); UROBILINOGEN 0.2 E.U./dl (0.2-1.0)
[2017-01-09 14:02] LABS: WBC TNTC wbc/hpf (0-5)
[2017-01-09 14:03] LABS: BACTERIA 3+
[2017-01-09] MEDS ORDERED: 3-DAY VAGINAL C21 GM V (14:04)
[2017-01-09] MEDS ORDERED: JOCK ITCH RELIE14 GM T (14:04)
[2017-01-09] MEDS ORDERED: MACROBID100 M1 PO (14:08)
== END 2017-01-09 14:36 | disposition home or self-care (01) ==
LOC: ED 13:27
PROVIDERS: Emergency Medicine
DX: N76.0 Acute vaginitis (principal); N39.0 Urinary tract infection, site not specified; K21.9 Gastro-esophageal reflux disease without esophagitis; E78.5 Hyperlipidemia, unspecified; I10 Essential (primary) hypertension; E11.65 Type 2 diabetes mellitus with hyperglycemia; G62.9 Polyneuropathy, unspecified; E66.9 Obesity, unspecified; Z90.49 Acquired absence of other specified parts of digestive tract; Z96.652 Presence of left artificial knee joint; Z98.890 Other specified postprocedural states; Z79.4 Long term (current) use of insulin; Z79.899 Other long term (current) drug therapy; Z88.8 Allergy status to other drugs, medicaments and biological substances; Z88.6 Allergy status to analgesic agent

== ENCOUNTER 2020-07-10 17:30 | Emergency (ER) | payer MEDICARE ==
[~2020-07-10] VITALS: Wt 81.6 kg
[~2020-07-10 17:30] MED LIST changes: +3-DAY VAGINAL C21 GM V; +JOCK ITCH RELIE14 GM T
[2020-07-10 18:04] LABS: BASO # 0.1 10*3/uL (0.0-0.1); BASO % 0.4 % (0.0-1.0); EOS % 0.2 % (1.0-4.0); HEMATOCRIT 39.3 % (37.0-47.0); LYMPH # 1.3 10*3/uL (1.3-4.4); MEAN CELL VOLUME 90.3 fl (81.0-99.0); MEAN CORPUSCULAR HGB 27.6 pg (27.0-31.0); MEAN CORPUSCULAR HGB CONC 30.5 g/dl (33.0-37.0); MEAN PLATELET VOLUME 9.6 fl (9.6-12.3); MONO % 7.7 % (3.0-9.0); NEUT # 10.9 10*3/uL (2.3-7.9); NEUT % 81.3 % (47.0-73.0); PLATELET COUNT AUTOMATED 302 10*3/uL (130-400); RED BLOOD COUNT 4.35 10*6/uL (4.10-5.10); RED CELL DISTRI WIDTH 14.6 % (0-14.5); WHITE BLOOD COUNT 13.4 10*3/uL (4.8-10.8)
[2020-07-10 18:21] LABS: ALBUMIN 3.1 gm/dl (3.1-4.5); ALKALINE PHOSPHATASE 95 U/L (45-117); BUN 13 mg/dl (7-24); CHLORIDE 107 mmol/L (98-107); CREATININE 0.72 mg/dL (0.55-1.02); LIPASE 56 U/L (73-393); SGOT/AST 36 IU/L (3-35); SGPT/ALT 28 U/L (12-78); SODIUM 142 mmol/L (136-145); TOTAL PROTEIN 7.7 gm/dL (6.4-8.2)
[2020-07-10 18:28] LABS: TROPONIN I < 0.015 ng/ml (<0.045)
[2020-07-10 19:37] LABS: BILIRUBIN Negative (Negative); BLOOD Negative (Negative); CLARITY Cloudy (Clear); COLOR Yellow (Yellow); GLUCOSE Negative (Negative); KETONE 3+ (Negative); LEUKO ESTERASE Trace (Negative); NITRITE Negative (Negative); SPECIFIC GRAVITY 1.025 (1.001-1.030)
[2020-07-10 19:51] LABS: MUCOUS 4+
== END 2020-07-10 22:29 | disposition home or self-care (01) ==
LOC: ED 17:30
PROVIDERS: Emergency Medicine
DX: I95.1 Orthostatic hypotension (principal); D72.829 Elevated white blood cell count, unspecified; Z88.8 Allergy status to other drugs, medicaments and biological substances; Z88.5 Allergy status to narcotic agent; Z91.018 Allergy to other foods

== ENCOUNTER 2020-10-12 01:00 | Emergency (ER) | payer MEDICARE ==
[~2020-10-12] VITALS: Ht 157.4 cm; Wt 74.8 kg
[2020-10-12 02:43] LABS: BASO % 0.5 % (0.0-1.0); EOS # 0.2 10*3/uL (0.0-0.4); EOS % 2.3 % (1.0-4.0); LYMPH # 1.6 10*3/uL (1.3-4.4); LYMPH % 19.1 % (27.0-41.0); MEAN CELL VOLUME 88.2 fl (81.0-99.0); MEAN CORPUSCULAR HGB 26.7 pg (27.0-31.0); MEAN CORPUSCULAR HGB CONC 30.3 g/dl (33.0-37.0); MEAN PLATELET VOLUME 9.3 fl (9.6-12.3); MONO # 0.8 10*3/uL (0.1-1.0); MONO % 9.2 % (3.0-9.0); NEUT # 5.6 10*3/uL (2.3-7.9); NEUT % 68.5 % (47.0-73.0); PLATELET COUNT AUTOMATED 272 10*3/uL (130-400); RED BLOOD COUNT 4.42 10*6/uL (4.10-5.10); WHITE BLOOD COUNT 8.2 10*3/uL (4.8-10.8)
[2020-10-12 03:05] LABS: ALBUMIN 2.9 gm/dl (3.1-4.5); ALKALINE PHOSPHATASE 93 U/L (45-117); BUN 15 mg/dl (7-24); CHLORIDE 109 mmol/L (98-107); CREATININE 0.73 mg/dL (0.55-1.02); POTASSIUM 4.9 mmol/L (3.5-5.1); SGOT/AST 21 IU/L (3-35); SGPT/ALT 23 U/L (12-78); SODIUM 141 mmol/L (136-145); TOTAL PROTEIN 7.6 gm/dL (6.4-8.2)
[2020-10-12 03:43] LABS: BILIRUBIN Negative (Negative); BLOOD Negative (Negative); CLARITY Clear (Clear); COLOR Yellow (Yellow); GLUCOSE Negative (Negative); KETONE 1+ (Negative); LEUKO ESTERASE 3+ (Negative); NITRITE Negative (Negative); SPECIFIC GRAVITY 1.015 (1.001-1.030)
[2020-10-12 03:58] LABS: BACTERIA 1+; MUCOUS 1+; WBC 31-40 wbc/hpf (0-5)
== END 2020-10-12 05:00 | disposition home or self-care (01) ==
LOC: ED 01:00
PROVIDERS: Emergency Medicine
DX: I10 Essential (primary) hypertension (principal); E11.9 Type 2 diabetes mellitus without complications; K21.9 Gastro-esophageal reflux disease without esophagitis; E78.5 Hyperlipidemia, unspecified; E66.9 Obesity, unspecified; Z88.6 Allergy status to analgesic agent; Z88.8 Allergy status to other drugs, medicaments and biological substances; Z79.899 Other long term (current) drug therapy; Z79.4 Long term (current) use of insulin

== ENCOUNTER 2021-08-25 11:33 | Emergency (ER) | payer MEDICARE ==
[~2021-08-25] VITALS: Ht 152.4 cm; Wt 63.5 kg
[2021-08-25 12:09] LABS: BASO % 0.6 % (0.0-1.0); EOS # 0.3 10*3/uL (0.0-0.4); EOS % 4.9 % (1.0-4.0); HEMATOCRIT 40.3 % (37.0-47.0); LYMPH # 2.3 10*3/uL (1.3-4.4); LYMPH % 32.7 % (27.0-41.0); MEAN CELL VOLUME 90.8 fl (81.0-99.0); MEAN CORPUSCULAR HGB 28.8 pg (27.0-31.0); MEAN CORPUSCULAR HGB CONC 31.8 g/dl (33.0-37.0); MEAN PLATELET VOLUME 9.2 fl (9.6-12.3); MONO # 0.7 10*3/uL (0.1-1.0); MONO % 9.6 % (3.0-9.0); NEUT # 3.6 10*3/uL (2.3-7.9); NEUT % 51.8 % (47.0-73.0); PLATELET COUNT AUTOMATED 266 10*3/uL (130-400); RED BLOOD COUNT 4.44 10*6/uL (4.10-5.10); RED CELL DISTRI WIDTH 14.1 % (0-14.5)
[2021-08-25 12:22] LABS: ACT PARTIAL THROMBO TIME 26.3 SECONDS (20.0-32.1)
[2021-08-25 12:24] LABS: ALKALINE PHOSPHATASE 83 U/L (45-117); BUN 17 mg/dl (7-24); CHLORIDE 110 mmol/L (98-107); CREATININE 0.71 mg/dL (0.55-1.02); LIPASE 140 U/L (73-393); POTASSIUM 3.8 mmol/L (3.5-5.1); SGOT/AST 16 IU/L (3-35); SGPT/ALT 19 U/L (12-78); SODIUM 143 mmol/L (136-145); TOTAL PROTEIN 7.4 gm/dL (6.4-8.2)
[2021-08-25] MEDS ORDERED: VALIUM5 MG PO (12:29)
[2021-08-25] MEDS ORDERED: AMLODIPINE BES2.5 MG PO (12:29)
[2021-08-25] MEDS ORDERED: OXYBUTYNIN5 MG PO (12:30)
[2021-08-25 14:16] LABS: BILIRUBIN Negative (Negative); BLOOD Negative (Negative); CLARITY Clear (Clear); COLOR Yellow (Yellow); GLUCOSE Negative (Negative); KETONE Negative (Negative); LEUKO ESTERASE 1+ (Negative); NITRITE Negative (Negative); PH 5.5 (4.5-8.0); SPECIFIC GRAVITY 1.015 (1.001-1.030); UROBILINOGEN 0.2 E.U./dl (0.0-1.0)
[2021-08-25 14:19] LABS: URINE AMPHETAMINES < 1000 (1000ng/ml); URINE BARBITURATES < 200 (200ng/ml); URINE BENZODIAZEPINES > 200 (200ng/ml); URINE CANNABINOIDS (THC) < 50 (50ng/ml); URINE COCAINE < 300 (300ng/ml); URINE METHADONE < 300 (300ng/ml); URINE OPIATES < 300 (300ng/ml)
[2021-08-25 14:28] LABS: URINE PHENCYCLIDINE < 25 (25ng/ml)
[2021-08-25 15:01] LABS: BACTERIA 2+; RBC 0-2 rbc/hpf (0-2)
== END 2021-08-25 16:58 | disposition admitted as inpatient to this hospital (09) ==
LOC: ED 11:33
PROVIDERS: Emergency Medicine
DX: F60.0 Paranoid personality disorder (principal); Z20.822 Contact with and (suspected) exposure to COVID-19; K21.9 Gastro-esophageal reflux disease without esophagitis; I10 Essential (primary) hypertension; E78.5 Hyperlipidemia, unspecified; E11.9 Type 2 diabetes mellitus without complications; Z88.8 Allergy status to other drugs, medicaments and biological substances; Z79.899 Other long term (current) drug therapy; Z90.89 Acquired absence of other organs; Z90.49 Acquired absence of other specified parts of digestive tract; Z98.890 Other specified postprocedural states

== ENCOUNTER 2021-08-25 17:20 | Inpatient (IN) | payer MEDICARE ==
[~2021-08-25 17:20] MED LIST changes: +AMLODIPINE BES2.5 MG PO; +OXYBUTYNIN5 MG PO
[2021-08-25 18:14] VITALS: BP 161/84
[2021-08-25 20:00] VITALS: BP 156/82
[2021-08-26 07:06] LABS: THYROID STIM HORMONE (HS) 4.48 uIU/ml (0.358-4.75)
[2021-08-26 07:22] VITALS: BP 142/56
[2021-08-26 08:28] LABS: VITAMIN D, 25-HYDROXY 31.6 ng/mL (30-100)
[2021-08-26 20:00] VITALS: BP 142/68
[2021-08-27 06:28] LABS: BASO # 0.1 10*3/uL (0.0-0.1); BASO % 0.7 % (0.0-1.0); EOS # 0.3 10*3/uL (0.0-0.4); EOS % 4.6 % (1.0-4.0); HEMATOCRIT 38.2 % (37.0-47.0); LYMPH # 2.3 10*3/uL (1.3-4.4); LYMPH % 32.2 % (27.0-41.0); MEAN CELL VOLUME 90.3 fl (81.0-99.0); MEAN CORPUSCULAR HGB 27.7 pg (27.0-31.0); MEAN CORPUSCULAR HGB CONC 30.6 g/dl (33.0-37.0); MEAN PLATELET VOLUME 9.5 fl (9.6-12.3); MONO # 0.8 10*3/uL (0.1-1.0); MONO % 10.8 % (3.0-9.0); NEUT # 3.7 10*3/uL (2.3-7.9); NEUT % 51.1 % (47.0-73.0); PLATELET COUNT AUTOMATED 263 10*3/uL (130-400); RED BLOOD COUNT 4.23 10*6/uL (4.10-5.10); RED CELL DISTRI WIDTH 13.9 % (0-14.5); WHITE BLOOD COUNT 7.2 10*3/uL (4.8-10.8)
[2021-08-27 06:37] LABS: BUN 15 mg/dl (7-24); CHLORIDE 113 mmol/L (98-107); CREATININE 0.62 mg/dL (0.55-1.02); POTASSIUM 3.8 mmol/L (3.5-5.1); SODIUM 145 mmol/L (136-145)
[2021-08-27 07:22] VITALS: BP 124/67
[2021-08-27 19:19] VITALS: BP 108/50
[2021-08-28 07:19] VITALS: BP 117/43
[2021-08-28 20:00] VITALS: BP 137/44
[2021-08-29 07:00] VITALS: BP 127/41
[2021-08-29 19:13] LABS: BILIRUBIN Negative (Negative); BLOOD Negative (Negative); CLARITY Clear (Clear); COLOR Yellow (Yellow); GLUCOSE Trace (Negative); KETONE Negative (Negative); LEUKO ESTERASE Negative (Negative); NITRITE Negative (Negative); PH 6.5 (4.5-8.0); SPECIFIC GRAVITY 1.015 (1.001-1.030); UROBILINOGEN 0.2 E.U./dl (0.0-1.0)
[2021-08-29 19:29] LABS: BACTERIA TRACE; RBC 0-2 rbc/hpf (0-2); WBC 0-2 wbc/hpf (0-5)
[2021-08-29 20:00] VITALS: BP 119/52
[2021-08-30 07:27] VITALS: BP 130/58
[2021-08-30 20:00] VITALS: BP 118/61
[2021-08-31 07:51] VITALS: BP 120/48
[2021-08-31 20:00] VITALS: BP 136/57
[2021-09-01 07:30] VITALS: BP 125/51
[2021-09-01 17:58] LABS: BILIRUBIN Negative (Negative); BLOOD Negative (Negative); CLARITY Cloudy (Clear); COLOR Yellow (Yellow); GLUCOSE 1+ (Negative); KETONE Negative (Negative); LEUKO ESTERASE 2+ (Negative); NITRITE Negative (Negative); PH 6.5 (4.5-8.0); SPECIFIC GRAVITY 1.015 (1.001-1.030); UROBILINOGEN 0.2 E.U./dl (0.0-1.0)
[2021-09-01 18:11] LABS: BACTERIA 3+; EPITHELIAL CELLS 0-2; WBC 16-20 wbc/hpf (0-5)
[2021-09-01 20:00] VITALS: BP 144/54
[2021-09-02 07:31] VITALS: BP 114/54
[2021-09-02 20:00] VITALS: BP 124/62
[2021-09-03 07:25] VITALS: BP 121/45
[2021-09-03 20:00] VITALS: BP 101/46
[2021-09-04 08:00] VITALS: BP 132/60
[2021-09-04 12:38] LABS: BASO # 0.1 10*3/uL (0.0-0.1); EOS # 0.3 10*3/uL (0.0-0.4); EOS % 3.6 % (1.0-4.0); LYMPH # 1.9 10*3/uL (1.3-4.4); LYMPH % 23.9 % (27.0-41.0); MEAN CELL VOLUME 90.1 fl (81.0-99.0); MEAN CORPUSCULAR HGB 27.9 pg (27.0-31.0); MEAN PLATELET VOLUME 9.2 fl (9.6-12.3); MONO # 0.8 10*3/uL (0.1-1.0); MONO % 9.6 % (3.0-9.0); NEUT # 4.8 10*3/uL (2.3-7.9); NEUT % 60.5 % (47.0-73.0); PLATELET COUNT AUTOMATED 297 10*3/uL (130-400); RED BLOOD COUNT 4.33 10*6/uL (4.10-5.10); RED CELL DISTRI WIDTH 13.9 % (0-14.5)
[2021-09-04 12:53] LABS: ALKALINE PHOSPHATASE 102 U/L (45-117); BUN 18 mg/dl (7-24); CHLORIDE 108 mmol/L (98-107); CREATININE 0.83 mg/dL (0.55-1.02); POTASSIUM 4.1 mmol/L (3.5-5.1); SGOT/AST 28 IU/L (3-35); SGPT/ALT 33 U/L (12-78); SODIUM 143 mmol/L (136-145); TOTAL PROTEIN 7.2 gm/dL (6.4-8.2)
[2021-09-04 20:00] VITALS: BP 148/49
[2021-09-05 06:59] VITALS: BP 133/52
[2021-09-05] MEDS ORDERED: MEMANTINE HCL10 MG PO (10:31)
[2021-09-05] MEDS ORDERED: ARICEPT10 M1 PO (10:31)
[2021-09-05] MEDS ORDERED: MIRTAZAPINE15 M2 PO (10:31)
[2021-09-05] MEDS ORDERED: RISPERIDONE0.5 MG PO (10:31)
== END 2021-09-05 11:05 | DRG 885 ==
LOC: 3N 17:20
PROVIDERS: Counselor Professional; Family Medicine; Internal Medicine; ADMIT Psychiatry & Neurology Psychiatry; ATTEND Psychiatry & Neurology Psychiatry
PROC: 0HBRXZZ Excision of Toe Nail, External Approach (ICD-10-PCS; principal; 2021-08-26)
PROC: 0HBRXZZ Excision of Toe Nail, External Approach (ICD-10-PCS; 2021-08-26)
PROC: 0HBRXZZ Excision of Toe Nail, External Approach (ICD-10-PCS; 2021-08-26)
PROC: 0HBRXZZ Excision of Toe Nail, External Approach (ICD-10-PCS; 2021-08-26)
PROC: 0HBRXZZ Excision of Toe Nail, External Approach (ICD-10-PCS; 2021-08-26)
PROC: 0HBRXZZ Excision of Toe Nail, External Approach (ICD-10-PCS; 2021-08-26)
PROC: 0HBRXZZ Excision of Toe Nail, External Approach (ICD-10-PCS; 2021-08-26)
PROC: 0HBRXZZ Excision of Toe Nail, External Approach (ICD-10-PCS; 2021-08-26)
PROC: 0HBRXZZ Excision of Toe Nail, External Approach (ICD-10-PCS; 2021-08-26)
PROC: 0HBRXZZ Excision of Toe Nail, External Approach (ICD-10-PCS; 2021-08-26)
DX: F23 Brief psychotic disorder (principal); E43 Unspecified severe protein-calorie malnutrition; E11.65 Type 2 diabetes mellitus with hyperglycemia; G93.41 Metabolic encephalopathy; F31.60 Bipolar disorder, current episode mixed, unspecified; K21.9 Gastro-esophageal reflux disease without esophagitis; I10 Essential (primary) hypertension; E78.5 Hyperlipidemia, unspecified; E11.40 Type 2 diabetes mellitus with diabetic neuropathy, unspecified; E66.9 Obesity, unspecified; B35.1 Tinea unguium; F02.80 Dementia in other diseases classified elsewhere, unspecified severity, without behavioral disturbance, psychotic disturbance, mood disturbance, and anxiety; G30.8 Other Alzheimer's disease; D64.9 Anemia, unspecified; E55.9 Vitamin D deficiency, unspecified; F22 Delusional disorders; Z82.49 Family history of ischemic heart disease and other diseases of the circulatory system; Z80.41 Family history of malignant neoplasm of ovary; Z79.82 Long term (current) use of aspirin; Z88.6 Allergy status to analgesic agent; Z88.8 Allergy status to other drugs, medicaments and biological substances; Z68.27 Body mass index [BMI] 27.0-27.9, adult

== ENCOUNTER 2021-10-04 13:58 | Emergency (ER) | payer MEDICARE ==
[~2021-10-04] VITALS: Wt 68.0 kg
[~2021-10-04 13:58] MED LIST changes: +ARICEPT10 M1 PO
[2021-10-04 16:47] LABS: BUN 16 mg/dl (7-24); CHLORIDE 108 mmol/L (98-107); CREATININE 0.76 mg/dL (0.55-1.02); POTASSIUM 4.2 mmol/L (3.5-5.1); SODIUM 140 mmol/L (136-145)
[2021-10-04] MEDS ORDERED: TYLENOL325 M1 PO (16:50)
[2021-10-04] MEDS ORDERED: NAPROXEN250 MG PO (16:50)
== END 2021-10-04 17:07 | disposition home or self-care (01) ==
LOC: ED 13:58
PROVIDERS: Emergency Medicine
DX: M54.50 Low back pain, unspecified (principal); M25.551 Pain in right hip; G89.29 Other chronic pain; F41.9 Anxiety disorder, unspecified; K21.9 Gastro-esophageal reflux disease without esophagitis; E78.5 Hyperlipidemia, unspecified; I10 Essential (primary) hypertension; E66.9 Obesity, unspecified; E11.40 Type 2 diabetes mellitus with diabetic neuropathy, unspecified; E46 Unspecified protein-calorie malnutrition; Z88.8 Allergy status to other drugs, medicaments and biological substances; Z88.6 Allergy status to analgesic agent; Z88.5 Allergy status to narcotic agent; Z79.899 Other long term (current) drug therapy; Z90.49 Acquired absence of other specified parts of digestive tract; Z90.710 Acquired absence of both cervix and uterus; Z96.652 Presence of left artificial knee joint; Z90.89 Acquired absence of other organs

== ENCOUNTER 2021-12-09 10:55 | Emergency (ER) | payer MEDICARE ==
[~2021-12-09] VITALS: Wt 72.6 kg
[~2021-12-09 10:55] MED LIST changes: +NAPROXEN250 MG PO; +TYLENOL325 M1 PO
[2021-12-09 11:55] LABS: BASO % 0.6 % (0.0-1.0); EOS # 0.3 10*3/uL (0.0-0.4); EOS % 3.9 % (1.0-4.0); HEMATOCRIT 40.4 % (37.0-47.0); LYMPH # 1.4 10*3/uL (1.3-4.4); LYMPH % 20.1 % (27.0-41.0); MEAN CORPUSCULAR HGB 27.4 pg (27.0-31.0); MEAN CORPUSCULAR HGB CONC 30.4 g/dl (33.0-37.0); MEAN PLATELET VOLUME 8.9 fl (9.6-12.3); MONO # 0.6 10*3/uL (0.1-1.0); MONO % 8.4 % (3.0-9.0); NEUT # 4.7 10*3/uL (2.3-7.9); NEUT % 66.3 % (47.0-73.0); PLATELET COUNT AUTOMATED 302 10*3/uL (130-400); RED BLOOD COUNT 4.49 10*6/uL (4.10-5.10); RED CELL DISTRI WIDTH 15.1 % (0-14.5); WHITE BLOOD COUNT 7.1 10*3/uL (4.8-10.8)
[2021-12-09 12:12] LABS: ALKALINE PHOSPHATASE 95 U/L (45-117); BUN 12 mg/dl (7-24); CHLORIDE 111 mmol/L (98-107); CREATININE 0.73 mg/dL (0.55-1.02); POTASSIUM 4.1 mmol/L (3.5-5.1); SGOT/AST 18 IU/L (3-35); SGPT/ALT 22 U/L (12-78); SODIUM 145 mmol/L (136-145); TOTAL PROTEIN 7.6 gm/dL (6.4-8.2)
== END 2021-12-09 14:42 | disposition home or self-care (01) ==
LOC: ED 10:55
PROVIDERS: Family Medicine
DX: M25.561 Pain in right knee (principal); M25.562 Pain in left knee; M25.551 Pain in right hip; M25.552 Pain in left hip; W18.39XA Other fall on same level, initial encounter; Y93.89 Activity, other specified; Y92.89 Other specified places as the place of occurrence of the external cause; Y99.8 Other external cause status

== ENCOUNTER 2024-11-20 13:54 | Emergency (ER) | payer MEDICARE, OTHER ==
[~2024-11-20] VITALS: Ht 157.4 cm; Wt 70.3 kg
[~2024-11-20 13:54] MED LIST changes: +BUSPAR5 MG PO; +HUMALOG100 UNIT/2 SQ; +HYDROXYZINE HCL25 MG PO; +METFORMIN HYDR500 MG PO; +QUESTRAN LIGHT210 GM PO; +VALIUM2 MG PO
[2024-11-20] MEDS ORDERED: JANUVIA50 MG PO (14:45)
[2024-11-20] MEDS ORDERED: LANTUS100 UNIT/1 SC (14:46)
[2024-11-20] MEDS ORDERED: RISPERDAL0.5 MG PO (14:48)
[2024-11-20 16:30] LABS: BASO # 0.1 10*3/uL (0.0-0.1); BASO % 0.7 % (0.0-1.0); EOS # 0.2 10*3/uL (0.0-0.4); EOS % 2.5 % (1.0-4.0); MEAN CELL VOLUME 92.5 fl (81.0-99.0); MEAN CORPUSCULAR HGB 28.2 pg (27.0-31.0); MEAN PLATELET VOLUME 9.2 fl (9.6-12.3); MONO # 0.9 10*3/uL (0.1-1.0); MONO % 10.5 % (3.0-9.0); NEUT # 5.4 10*3/uL (2.3-7.9); NEUT % 64.0 % (47.0-73.0); NUCLEATED RED BLOOD CELL 0.0 % (0.0-0.0); NUCLEATED RED BLOOD CELL 0.0 10*3/uL (0.0-0.0); PLATELET COUNT AUTOMATED 272 10*3/uL (130-400); RED CELL DISTRI WIDTH 14.1 % (0-14.5)
[2024-11-20 16:41] LABS: ACT PARTIAL THROMBO TIME 26.8 SECONDS (20.0-32.1)
[2024-11-20 16:54] LABS: BUN 17 mg/dl (9-23); SGPT/ALT 9 U/L (5-49)
[2024-11-20] MEDS ORDERED: VIBRAMYCIN100 MG PO (18:52)
[2024-11-20] MEDS ORDERED: PREDNISONE20 M1 PO (18:52)
[2024-11-20] MEDS ORDERED: Water, Sterile 10 ML VIAL ONE (19:28)
== END 2024-11-20 19:00 | disposition home or self-care (01) ==
LOC: ED 13:54
PROVIDERS: Nurse Practitioner Family
DX: R21 Rash and other nonspecific skin eruption (principal); L02.811 Cutaneous abscess of head [any part, except face]; E66.9 Obesity, unspecified; F32.9 Major depressive disorder, single episode, unspecified; F41.9 Anxiety disorder, unspecified; K21.9 Gastro-esophageal reflux disease without esophagitis; E78.5 Hyperlipidemia, unspecified; I10 Essential (primary) hypertension; M19.90 Unspecified osteoarthritis, unspecified site; E78.00 Pure hypercholesterolemia, unspecified; E11.40 Type 2 diabetes mellitus with diabetic neuropathy, unspecified; Z88.6 Allergy status to analgesic agent; Z88.8 Allergy status to other drugs, medicaments and biological substances; Z90.49 Acquired absence of other specified parts of digestive tract; Z90.710 Acquired absence of both cervix and uterus; Z90.89 Acquired absence of other organs; Z96.652 Presence of left artificial knee joint